=== PATIENT | female | born 2000 | race Caucasian/White ===

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

== ENCOUNTER 2023-12-03 08:33 | Outpatient (REF) | payer BC, SELFPAY ==
--- NOTE | 2023-12-03 08:20 | PAPFT_PTH ---
PATIENT: ADDISON GREWAL LOC: [facility] U#:[id number] AGE/SX: 23/F ROOM: RE12/03/[address]: Molyl Ramon NP : 2000 BED: DIS: 12/03/2023 SPEC #: [id number] RECD: 12/03/23 13:06 STATUS: FABIO LENZ #: [id number] CLARITZA: 12/03/23 08:[address]: Molly Ramon NP DEPT: [facility] Cytology RECD BY: Lois Gonsalez ENTERED: 12/03/23 13:06 SP TYPE: PAPFT OTHR DR: Unknown,Unknown Tissues: 1 - CX/ENDOCX FOR PAP SMEARS Procedures: PAP THIN PREP/[facility] Screening Comments: [id number] (CHLAMYDIA/GC)
[2023-12-04 13:01] LABS: Chlamydia Result Negative (Negative); GC Result Negative (Negative)
== END 2023-12-03 08:34 | disposition home or self-care (01) ==
LOC: LBN 08:33
PROVIDERS: Visit Provider Nurse Practitioner Women's Health
DX: Z30.430 Encounter for insertion of intrauterine contraceptive device (principal); Z12.4 Encounter for screening for malignant neoplasm of cervix; Z11.3 Encounter for screening for infections with a predominantly sexual mode of transmission
CPT/HCPCS: 87491; 87591; 88142